=== PATIENT | male | born 1970 | race Caucasian/White ===

== ENCOUNTER 2018-03-05 15:00 | Emergency (ER) | payer BC, OTHER ==
[2018-03-05 15:14] VITALS: BP 152/99
--- NOTE | 2018-03-05 15:25 | UC ---
Complaint Male HPI - HPI Summary HPI Summary: This is surendra Jimenezcarolina Wolf documenting for Gallito Chaidez MD. This patient is a 47 year old M presenting to [facility] accompanied by with a chief complaint of waxing and waning L flank pain radiating to groin that began this morning at 0830. The patient rates the pain 4/10 in severity. Symptoms aggravated by nothing. Symptoms alleviated by ambulation and Tylenol. Patient reports urinary urgency and decreased urinary output. Patient denies testicular pain, fever, and chills. Allergies reviewed. Medications reviewed. - History of Current Complaint Chief Complaint: UCGU Stated Complaint: LOW BACK PAIN Time Seen by Provider: 03/05/18 15:16 Hx Obtained From: Patient Onset/Duration: Sudden Onset, Lasting Hours, Still Present Timing: Constant Severity Initially: Moderate Severity Currently: Moderate Pain Intensity: 4 Pain Scale Used: 0-10 Numeric Location: Flank Aggravating Factor(s): Palpation Alleviating Factor(s): Meds, Movement Associated Signs And Symptoms: Negative: Fever - Allergies/Home Medications Allergies/Adverse Reactions: Allergies Allergy/AdvReac Type Severity Reaction Status Date / Time No Known Allergies Allergy Verified 03/05/18 15:13 PMH/Surg Hx/FS Hx/Imm Hx Previously Healthy: Yes Endocrine History: Other Other Endocrine History: Negative HTN GI/ History: Other Other GI/ History: Negative kidney stones - Surgical History Surgical History: Yes Surgery Procedure, Year, and Place: LEFT elbow surgery. Tonsillectomy at 7 yoa - Family History Known Family History: Negative: Cardiac Disease, Diabetes - Social History Occupation: Employed Full-time Lives: With Family Alcohol Use: Daily Substance Use Type: None Smoking Status (MU): Heavy Every Day Tobacco Smoker Type: Cigarettes Length of Time of Smoking/Using Tobacco: 30 Review of Systems Constitutional: Other - Negative feer and chills Gastrointestinal: Other - Positive flank pain Genitourinary: Urgency, Other - Positive decreased urinary output. Negative testicular pain All Other Systems Reviewed And Are Negative: Yes Physical Exam - Summary Physical Exam Summary: General: well-appearing, no pain distress Skin: warm, color reflects adequate perfusion, dry Head: normal Eyes: EOMI, MARILYN ENT: normal Neck: supple, nontender Respiratory: CTA, breath sounds present Cardiovascular: RRR Abdomen: soft, nontender. Mild tenderness to percussion left flank and left lower abd. No ULQ tenderness Bowel: present Musculoskeletal: normal, strength/ROM intact Neurological: sensory/motor intact, A&O x3 Psychological: affect/mood appropriate Triage Information Reviewed: Yes Vital Signs: Initial Vital Signs Temp 98.8 F 03/05/18 15:09 Pulse 87 03/05/18 15:09 Resp 20 03/05/18 15:09 BP 152/99 03/05/18 15:09 Pulse Ox 99 03/05/18 15:09 Vital Signs Reviewed: Yes Diagnostics - Radiology Abdomen and Pelvis CT Radiology Interpretation Completed By: Radiologist - Abdomen and pelvis CT reveals, per radiologist, 0.2 cm calculus of the distal left ureter, just proximal to the left UVJ, with mild left-sided hydronephrosis. ED physician has reviewed this radiology report. Re-Evaluation - Re-Evaluation First Eval Re-Evaluation Time: 16:02 Change: Unchanged Comment: Discussed results and plan of care with pt Complaint Male Course/Dx - Course Course Of Treatment: DISCUSSED CT/UA REPORT WITH PATIENT AND PARTNER. THE PLAN IS PO FLUIDS, STRAIN URE, FLOMAX, PAIN CONTROL AND F/U WITH UROLOGY. GO TO ED IF WORSE. BP noted and advised to follow up with PCP - Differential Dx/Diagnosis Provider Diagnoses: LEFT URETEROLITHIASIS. Elevated BP without dx of HTN Discharge - Sign-Out/Discharge Documenting (check all that apply): Patient Departure - Discharge Plan Condition: Stable Disposition: HOME Prescriptions: HYDROcodone/ACETAMIN 5-325 MG* [[place] 5-325 TAB*] 1 tab PO Q4H PRN #20 tab MDD 6 PRN Reason: Pain Tamsulosin CAP* [Flomax CAP*] 0.4 mg PO DAILY #5 cap Patient Education Materials: Kidney Stones (ED) Referrals: [facility] [place] [facility] [Outside] James Dong MD [Medical Doctor] - Kuldeep Levy MD [Medical Doctor] - Additional Instructions: FOLLOW UP WITH UROLOGY. DRINK PLENTY OF WATER. GET RECHECKED FOR ANY WORSENING OF YOUR CONDITION; PAIN, VOMITING, FEVER, SIGNS OF INFECTION OR QUESTIONS OR CONCERNS. - Billing Disposition and Condition Condition: STABLE Disposition: Home
[2018-03-05] MEDS ORDERED: Ibuprofen TAB* 600 MG PO ONE (15:26)
--- NOTE | 2018-03-05 15:51 | RAD ---
CLINICAL HISTORY: left flank pain COMPARISON: None TECHNIQUE: Multiple contiguous axial CT scans were obtained of the abdomen and pelvis after the administration of intravenous contrast. Coronal and sagittal multiplanar reformations are submitted for review. Oral contrast was not administered. FINDINGS: The study is limited by the lack of intravenous contrast. This limits evaluation of the solid organs and vasculature. LUNG BASES: The lung bases are clear. LIVER: The liver is normal in shape, size, contour, and attenuation. BILE DUCTS: There is no intrahepatic or extrahepatic biliary dilatation. GALLBLADDER: The gallbladder is normal, without pericholecystic inflammatory change. PANCREAS: The pancreas is normal, without mass or ductal dilatation. SPLEEN: Normal in size and appearance. UPPER GI TRACT: Evaluation of the gastrointestinal tract is limited by incomplete gastric distention. The upper GI tract is unremarkable. SMALL BOWEL AND MESENTERY: The small bowel is normal in contour, course, and caliber. There is no obstruction or dilatation. COLON: The colon is normal in contour, course, caliber. There is no pericolonic inflammatory change. ADRENALS: Normal bilaterally. KIDNEYS: There is mild pelvocaliectasis and hydroureter on the left. There is a 0.2 cm calculus of the distal ureter just proximal to the left UVJ. BLADDER: The bladder is collapsed and is not well evaluated. PELVIC ORGANS: The prostate gland is normal. The seminal vesicles are symmetric. AORTA: There is calcific atherosclerotic disease of the abdominal aorta and its branches, without aneurysmal dilatation IVC: Unremarkable LYMPH NODES: There is no lymphadenopathy by size criteria. ABDOMINAL WALL: There is no evidence for abdominal wall hernia. BONES AND SOFT TISSUES: Mild degenerative changes are noted most pronounced at L4-L5. OTHER: None IMPRESSION: 0.2 CM CALCULUS OF THE DISTAL LEFT URETER, JUST PROXIMAL TO THE LEFT UVJ, WITH MILD LEFT-SIDED HYDRONEPHROSIS.
[2018-03-05] MEDS ORDERED: HYDROcodone/ACETAMIN 5-325 MG* 1 TAB PO ONE (16:10)
== END 2018-03-05 16:20 | disposition home or self-care (01) ==
LOC: UCEAST 15:00
DX: N20.1 Calculus of ureter (principal); R03.0 Elevated blood-pressure reading, without diagnosis of hypertension; F17.210 Nicotine dependence, cigarettes, uncomplicated
CPT/HCPCS: 74176; 81003; 99202; A9270-GY; G0463